=== PATIENT | female | born 1975 | race Caucasian/White ===

== ENCOUNTER 2022-04-18 09:57 | Emergency (ER) | payer MEDICAID ==
[~2022-04-18] VITALS: Ht 160 cm; Wt 95.3 kg
--- NOTE | 2022-04-18 10:07 | NUR ---
BIBS C/O RLE PAIN WORST TO R ANKLE WITH NOTED SWELLING S/P FALLING OFF THE STAIRS THIS MONRING. PAIN IS 8/10 ON PAIN SCALE.
[2022-04-18] MEDS ORDERED: IBUPROFEN 600 MG TABLET ONE (10:12)
--- NOTE | 2022-04-18 10:14 | NUR ---
X RAY AT BEDSIDE
[2022-04-18] MEDS ORDERED: IBUPROFEN 600 MG TABLET PO ONE (10:30)
--- NOTE | 2022-04-18 10:52 | NUR ---
TECH AT BEDSIDE FOR BOOT APPLICATION; TEACHING PROVIDED FOR CRUTCH USE.
--- NOTE | 2022-04-18 11:02 | NUR ---
Patient discharged to home in stable condition. Written and verbal after care instructions given. Patient verbalizes understanding of instruction.
[2022-04-18 11:05] VITALS: BP 120/73
== END 2022-04-18 11:06 | disposition home or self-care (01) ==
LOC: ER 10:09
DX: S93.401A Sprain of unspecified ligament of right ankle, initial encounter (principal); Z88.8 Allergy status to other drugs, medicaments and biological substances; W10.9XXA Fall (on) (from) unspecified stairs and steps, initial encounter; Y93.89 Activity, other specified; Y92.89 Other specified places as the place of occurrence of the external cause; Y99.8 Other external cause status
CPT/HCPCS: 73610-TC